=== PATIENT | male | born 1950 | race Caucasian/White ===

== ENCOUNTER 2016-09-12 15:56 | Emergency (ER) | payer BC ==
[2016-09-12 16:07] VITALS: BP 130/68; PULSE 74; TEMP 97.8; BMI 27.3
--- NOTE | 2016-09-12 17:44 | PDOC ---
History of Present Illness - General Chief Complaint: Ear Problem Stated Complaint: RT EAR CLOGGED Time Seen by Provider: 09/12/16 16:26 History Source: Patient Exam Limitations: No Limitations - History of Present Illness Initial Comments: 09/12/16 17:39 Chief complaint: Right ear clogged with wax decreased hearing History of present illness: Patient is a 66-year-old male with no significant medical history here today complaining of not being able to hear well out of his right ear often has wax impactions in his ear according to patient. Patient denies any pain. Just states "my but that's okay". Patient denies any fever , nasal congestion, sore throat, cough or any other symptoms. Patient reports last time he had his ears irrigated was 4 months ago with ear nose and throat MD. 09/12/16 17:41 Timing/Duration: getting worse (decreased hearing rt. ear ) Severity: moderate Associated Symptoms: reports: other (decreased hearing rt. ear ) Past History - Past Medical History Allergies/Adverse Reactions: Allergies Allergy/AdvReac Type Severity Reaction Status Date / Time No Known Allergies Allergy Verified 09/12/16 16:06 Home Medications: Ambulatory Orders NK [No Known Home Medication] 12/06/15 Other medical history: NONE - Psycho/Social/Smoking Cessation Hx Anxiety: No Suicidal Ideation: No Smoking Status: Yes Smoking History: Current every day smoker Have you smoked in the past 12 months: Yes Number of Cigarettes Smoked Daily: 7 Information on smoking cessation initiated: Yes 'Breaking Loose' booklet given: 09/12/16 Hx Alcohol Use: No Drug/Substance Use Hx: No Substance Use Type: None Review of Systems - Review of Systems Able to Perform ROS?: Yes Constitutional: No: Symptoms Reported HEENTM: Yes: Hearing Loss (right ear) Respiratory: No: Symptoms reported Cardiac (ROS): No: Symptoms Reported ABD/GI: No: Symptoms Reported : No: Symptoms Reported Musculoskeletal: No: Symptoms Reported Integumentary: No: Symptoms Reported Neurological: No: Symptoms reported *Physical Exam - Vital Signs Last Vital Signs Temp Pulse Resp BP Pulse Ox 97.8 F 74 18 130/68 97 09/12/16 16:03 09/12/16 16:03 09/12/16 16:03 09/12/16 16:03 09/12/16 16:03 - Physical Exam General Appearance: Yes: Appropriately Dressed HEENT: positive: TMs Normal (after irrigation b/l ), Other (b/l cerumen impaction, after irrigation of ears TM pearly dwyer, hearing WNL"S b/l ). negative: Pharyngeal Erythema, Tonsillar Exudate, Tonsillar Erythema, Nasal Congestion, Rhinorrhea Neck: negative: Lymphadenopathy (R), Lymphadenopathy (L) Respiratory/Chest: positive: Normal Breath Sounds. negative: Chest Tender, Respiratory Distress Cardiovascular: positive: Regular Rhythm, Regular Rate, S1, S2 Integumentary: positive: Normal Color Neurologic: positive: Alert, Normal Response, Responsive Medical Decision Making - Medical Decision Making 09/12/16 17:41 Patient is a 66-year-old male with no significant medical history here today complaining of not being able to hear well out of his right ear often has wax impactions in his ear according to patient. Patient denies any pain. Just states "my but that's okay". Patient denies any fever, nasal congestion, sore throat, cough or any other symptoms. Patient reports last time he had his ears irrigated was 4 months ago with ear nose and throat MD. 09/12/16 17:45 B/L cerumen impaction PLAN: b/l ear irrigation with warm water and 1/10 hydrogen peroxide with good results moderate amount of cerumen, no complications hearing restored *DC/Admit/Observation/Transfer Diagnosis at time of Disposition: Excessive cerumen in both ear canals - Discharge Dispostion Disposition: HOME Condition at time of disposition: Stable - Referrals Referrals: Rogelio Robbins [Primary Care Provider] - Macho Medina MD [Staff Physician] - - Patient Instructions Additional Instructions: Follow up ear, nose and throat Dr. Medina in the future for further evaluation and removal of wax RETURN TO EMERGENCY ROOM IF ANY PAIN IN EARS PATIENT VOICED UNDERSTANDING OF DISCHARGE INSTRUCTIONS AND ALL QUESTIONS WERE ANSWERED
== END 2016-09-12 17:51 | disposition home or self-care (01) ==
LOC: JERFT 15:56
PROC: 3E1B78Z Irrigation of Ear using Irrigating Substance, Via Natural or Artificial Opening (ICD-10-PCS; principal; 2016-09-12)
DX: H61.23 Impacted cerumen, bilateral (principal)
CPT/HCPCS: 99281-25

== ENCOUNTER 2022-05-12 19:26 | Emergency (ER) | payer BC, OTHER ==
[2022-05-12 19:32] VITALS: BP 133/73; PULSE 96; RESP 18; TEMP 97.9; BMI 31.4
[2022-05-12] MEDS ORDERED: FAMOTIDINE 20 MG/50 ML IVPB 20 MG/50 ML MG IVPB ONE ×2 (21:00→21:23)
[2022-05-12] MEDS ORDERED: SODIUM CHLORIDE 0.9% 500 ML INFUS.BAG IV ONE (21:00)
[2022-05-12] MEDS ORDERED: MAG HYDROX/AL HYDROX/SIMETH 30 ML UNIT-DOSE CUP PO ONE (21:00)
[2022-05-12] MEDS ORDERED: MAG HYDROX/AL HYDROX/SIMETH 30 ML UNIT-DOSE CUP ONE (21:22)
[2022-05-12 21:29] LABS: BASO % 1.2 % (0-2.0); EOS % 3.1 % (0-4.5); HEMATOCRIT 44.9 % (35.4-49); HEMOGLOBIN 15.6 GM/dL (11.7-16.9); LYMPH % 30.6 % (8-40); MCH 33.6 pg (25.7-33.7); MCHC 34.6 g/dl (32.0-35.9); MEAN CELL VOLUME 97.2 fl (80-96); MEAN PLT VOLUME 7.9 fl (7.5-11.1); MONO % 10.7 % (3.8-10.2); NEUT % 54.4 % (42.8-82.8); PLATELET COUNT 142 10^3/uL (134-434); RBC 4.62 M/mm3 (4.00-5.60); RDW 15.5 % (11.9-15.9); WHITE BLOOD COUNT 9.2 K/mm3 (4.0-10.0)
[2022-05-12 21:38] LABS: INR 1.35 (0.83-1.09); PROTHROMBIN TIME (PATIENT) 15.6 SEC (9.7-13.0)
[2022-05-12 21:40] LABS: ACTIVATED PTT 36.5 SECONDS (25.2-36.5)
[2022-05-12 21:51] LABS: BLOOD UREA NITROGEN 10.8 mg/dL (7-18); CALCIUM 9.1 mg/dL (8.5-10.1)
[2022-05-12 21:52] LABS: ALBUMIN 2.9 g/dl (3.4-5.0); MAGNESIUM 2.3 mg/dL (1.8-2.4)
[2022-05-12 21:54] LABS: CREATININE 0.9 mg/dL (0.55-1.3)
[2022-05-12 21:56] LABS: BILIRUBIN,TOTAL 0.9 mg/dL (0.2-1); TOT PROT 6.7 g/dl (6.4-8.2)
== END 2022-05-13 01:23 | disposition left against medical advice (07) ==
LOC: JER 19:26
PROC: 3E033GC Introduction of Other Therapeutic Substance into Peripheral Vein, Percutaneous Approach (ICD-10-PCS; principal; 2022-05-12)
DX: I48.91 Unspecified atrial fibrillation (principal); R10.13 Epigastric pain; K74.60 Unspecified cirrhosis of liver
CPT/HCPCS: 0241U-QW; 36415; 71046-TC-FY; 74178-TC; 80053; 82550; 82553; 83690; 83735; 84439; 84443; 84484; 85025; 85610; 85730; 86850; 86900; 86901; 93005; 93010; 99285-25; Q9967

== ENCOUNTER 2022-06-10 21:42 | Observation (INO) | payer OTHER ==
[2022-06-10 23:16] LABS: BASO % 0.8 % (0-2.0); EOS % 0.7 % (0-4.5); HEMATOCRIT 49.6 % (35.4-49); HEMOGLOBIN 16.9 GM/dL (11.7-16.9); LYMPH % 21.2 % (8-40); MCH 33.3 pg (25.7-33.7); MEAN CELL VOLUME 97.9 fl (80-96); MEAN PLT VOLUME 9.5 fl (7.5-11.1); MONO % 8.5 % (3.8-10.2); NEUT % 68.8 % (42.8-82.8); PLATELET COUNT 143 10^3/uL (134-434); RBC 5.07 M/mm3 (4.00-5.60); RDW 15.9 % (11.9-15.9); WHITE BLOOD COUNT 9.7 K/mm3 (4.0-10.0)
[2022-06-10 23:26] LABS: INR 1.65 (0.83-1.09)
[2022-06-10] MEDS: SODIUM CHLORIDE 1,000 ML IV SCH (23:30)
[2022-06-10 23:37] LABS: BLOOD UREA NITROGEN 18.8 mg/dL (7-18); CALCIUM 9.4 mg/dL (8.5-10.1)
[2022-06-10 23:38] LABS: ALBUMIN 3.4 g/dl (3.4-5.0)
[2022-06-10 23:42] LABS: BILIRUBIN,TOTAL 1.1 mg/dL (0.2-1); TOT PROT 7.7 g/dl (6.4-8.2)
[2022-06-11] MEDS ORDERED: APIXABAN 5 MG TABLET PO SCH (04:20)
[2022-06-11 06:39] LABS: HEMATOCRIT 46.8 % (35.4-49); MCH 33.4 pg (25.7-33.7); MCHC 34.2 g/dl (32.0-35.9); MEAN CELL VOLUME 97.7 fl (80-96); MEAN PLT VOLUME 9.4 fl (7.5-11.1); PLATELET COUNT 129 10^3/uL (134-434); RBC 4.79 M/mm3 (4.00-5.60); RDW 15.5 % (11.9-15.9)
[2022-06-11 07:09] LABS: CALCIUM 8.9 mg/dL (8.5-10.1)
[2022-06-11 07:10] LABS: BLOOD UREA NITROGEN 17.3 mg/dL (7-18); MAGNESIUM 1.8 mg/dL (1.8-2.4)
[2022-06-11 07:12] LABS: CREATININE 0.9 mg/dL (0.55-1.3); PHOSPHOROUS 3.2 mg/dL (2.5-4.9)
[2022-06-11 07:14] LABS: BILIRUBIN,TOTAL 1.6 mg/dL (0.2-1); TOT PROT 6.6 g/dl (6.4-8.2)
[2022-06-11] MEDS ORDERED: LACTULOSE 20 GM/30 ML UDC (FOR ORAL USE ONLY) PO PRN (09:46)
[2022-06-11] MEDS: ENOXAPARIN NA (PORCINE) 40 MG/0.4 ML DISP.SYRIN SQ SCH ×2 (11:07→11:22)
[2022-06-11] MEDS: RIFAXIMIN 550 MG TABLET PO SCH ×2 (11:07→21:44)
[2022-06-11] MEDS: ZINC SULFATE 220 MG CAPSULE (FP) PO SCH (11:08)
[2022-06-11] MEDS: metoPROLOL SUCCINATE 25 MG TAB.SR.24H (FP) PO SCH ×2 (11:08→11:23)
[2022-06-11] MEDS: ISOSORBIDE MONONITRATE 30 MG TAB.SR.24H (FP) PO SCH (11:08)
[2022-06-11 12:23] VITALS: BMI 31.5
[2022-06-11 12:28] LABS: HEPATITIS B SURFACE AG MATERN NON-REACTIVE (NONREACTIVE)
[2022-06-11] MEDS: SODIUM CHLORIDE 1,000 ML IV SCH (13:32)
[2022-06-11 18:31] LABS: EPI CELLS 5 /uL (0-25.1); HYALINE CASTS 1 /uL (0-3.1); PH,URINE 6.5 (5.0-8.0); URINE APPEARANCE CLEAR; URINE BACTERIA 13 /uL (0-1359); URINE BILIRUBIN 1+ (NEGATIVE); URINE COLOR DK YELLOW; URINE GLUCOSE (UA) NEGATIVE (NEGATIVE); URINE KETONE NEGATIVE (NEGATIVE); URINE LEUK ESTERASE NEGATIVE (NEGATIVE); URINE NITRITE NEGATIVE (NEGATIVE); URINE PROTEIN 1+ (NEGATIVE); URINE RBC 13 /uL (0-23.9); URINE WBC 11 /uL (0-25.8)
[2022-06-11 18:39] LABS: PHENCYCLIDINE,URINE NEGATIVE (NEGATIVE)
[2022-06-11 18:40] LABS: COCAINE, UR NEGATIVE (NEGATIVE); METHADONE, UR NEGATIVE (NEGATIVE); OPIATES, URI NEGATIVE (NEGATIVE); URINE AMPHETAMINES NEGATIVE (NEGATIVE); URINE BARBITURATES NEGATIVE (NEGATIVE); URINE BENZODIAZEPINES NEGATIVE (NEGATIVE)
[2022-06-12] MEDS: SODIUM CHLORIDE 1,000 ML IV SCH (03:51)
[2022-06-12 08:32] LABS: BASO % 1.2 % (0-2.0); EOS % 3.2 % (0-4.5); HEMATOCRIT 45.2 % (35.4-49); HEMOGLOBIN 15.6 GM/dL (11.7-16.9); LYMPH % 36.2 % (8-40); MCH 33.5 pg (25.7-33.7); MCHC 34.5 g/dl (32.0-35.9); MEAN CELL VOLUME 97.3 fl (80-96); NEUT % 49.4 % (42.8-82.8); PLATELET COUNT 127 10^3/uL (134-434); RBC 4.64 M/mm3 (4.00-5.60); RDW 15.3 % (11.9-15.9); WHITE BLOOD COUNT 7.6 K/mm3 (4.0-10.0)
[2022-06-12 08:51] LABS: ALBUMIN 2.8 g/dl (3.4-5.0); BLOOD UREA NITROGEN 21.1 mg/dL (7-18); CALCIUM 8.6 mg/dL (8.5-10.1)
[2022-06-12 08:54] LABS: BILIRUBIN,DIRECT 0.4 mg/dL (0.0-0.2); CREATININE 0.9 mg/dL (0.55-1.3); PHOSPHOROUS 3.1 mg/dL (2.5-4.9)
[2022-06-12 08:56] LABS: BILIRUBIN,TOTAL 1.2 mg/dL (0.2-1); TOT PROT 6.4 g/dl (6.4-8.2)
[2022-06-12] MEDS: ZINC SULFATE 220 MG CAPSULE (FP) PO SCH (10:37)
[2022-06-12] MEDS: RIFAXIMIN 550 MG TABLET PO SCH (10:37)
[2022-06-12] MEDS: metoPROLOL SUCCINATE 25 MG TAB.SR.24H (FP) PO SCH (10:37)
[2022-06-12] MEDS: ISOSORBIDE MONONITRATE 30 MG TAB.SR.24H (FP) PO SCH (10:37)
[2022-06-12] MEDS: ENOXAPARIN NA (PORCINE) 40 MG/0.4 ML DISP.SYRIN SQ SCH ×2 (10:37→10:47)
[2022-06-12 14:23] VITALS: BP 123/72; PULSE 99; RESP 18; TEMP 98.1
[2022-06-13 18:36] LABS: HOMOCYSTINE-PLASMA OR SERUM 13.7 umol/L (0.0-17.2)
== END 2022-06-12 16:11 | disposition home or self-care (01) ==
LOC: JER 21:42 → JERBED 06-11 00:37 → J5S 06-11 09:59
PROVIDERS: ADMIT Internal Medicine; ATTEND Internal Medicine
DX: R41.82 Altered mental status, unspecified (principal); I48.91 Unspecified atrial fibrillation; Z79.01 Long term (current) use of anticoagulants; F17.210 Nicotine dependence, cigarettes, uncomplicated; K74.60 Unspecified cirrhosis of liver
CPT/HCPCS: 0241U-QW; 36415; 70450-TC; 71045-TC-FY; 80048; 80053; 80061; 80076; 80307; 81003; 82140; 82550; 82553; 82607; 82746; 82962; 83036; 83090; 83735; 84100; 84443; 84484; 85025; 85027; 85610; 85730; 86705; 86803; 86850; 86900; 86901; 87086; 87340; 87517; 87522; 93005; 93010; 93306-TC; 93880-TC; 99285-25; G0378

== ENCOUNTER 2022-08-02 09:46 | Inpatient (IN) | payer OTHER ==
[2022-08-02 10:44] LABS: EOS % 2.2 % (0-4.5); HEMATOCRIT 43.9 % (35.4-49); HEMOGLOBIN 15.8 GM/dL (11.7-16.9); LYMPH % 29.5 % (8-40); MCH 34.8 pg (25.7-33.7); MCHC 35.9 g/dl (32.0-35.9); MEAN CELL VOLUME 96.9 fl (80-96); MEAN PLT VOLUME 8.7 fl (7.5-11.1); MONO % 8.8 % (3.8-10.2); NEUT % 58.5 % (42.8-82.8); PLATELET COUNT 137 10^3/uL (134-434); RBC 4.53 M/mm3 (4.00-5.60); RDW 15.9 % (11.9-15.9); WHITE BLOOD COUNT 8.4 K/mm3 (4.0-10.0)
[2022-08-02 11:02] LABS: POTASSIUM 4.6 mmol/L (3.5-5.1)
[2022-08-02 11:05] LABS: ALBUMIN 2.9 g/dl (3.4-5.0); BLOOD UREA NITROGEN 14.8 mg/dL (7-18)
[2022-08-02 11:08] LABS: CREATININE 0.9 mg/dL (0.55-1.3)
[2022-08-02 11:09] LABS: BILIRUBIN,TOTAL 0.7 mg/dL (0.2-1)
[2022-08-02] MEDS ORDERED: LACTATED RINGERS SOLUTION 1000 ML INFUS.BAG IV ONE (11:22)
[2022-08-02] MEDS ORDERED: LACTULOSE 20 GM/30 ML UDC (FOR ORAL USE ONLY) PO ONE (12:06)
[2022-08-02] MEDS ORDERED: LACTULOSE 20 GM/30 ML UDC (FOR ORAL USE ONLY) ONE (12:16)
[2022-08-02] MEDS ORDERED: LACTATED RINGERS SOLUTION 1,000 ML IV SCH (12:45)
[2022-08-02] MEDS ORDERED: metoPROLOL SUCCINATE 25 MG TAB.SR.24H (FP) PO SCH (13:00)
[2022-08-02] MEDS ORDERED: metoPROLOL SUCCINATE 25 MG TAB.SR.24H (FP) PO ONE (13:11)
[2022-08-02 15:24] VITALS: BMI 32.3
[2022-08-02] MEDS: CARVEDILOL 6.25 MG TABLET (FP) PO SCH (21:30)
[2022-08-02] MEDS: LACTULOSE 20 GM/30 ML UDC (FOR ORAL USE ONLY) PO SCH (21:30)
[2022-08-02] MEDS: RIFAXIMIN 550 MG TABLET PO SCH (21:30)
[2022-08-02] MEDS ORDERED: APIXABAN 5 MG TABLET PO SCH (22:00)
[2022-08-02] MEDS ORDERED: CARVEDILOL 12.5 MG TABLET (FP) PO SCH (22:00)
[2022-08-03 08:17] LABS: BASO % 0.9 % (0-2.0); EOS % 3.1 % (0-4.5); HEMATOCRIT 42.6 % (35.4-49); HEMOGLOBIN 15.1 GM/dL (11.7-16.9); LYMPH % 32.3 % (8-40); MCH 34.3 pg (25.7-33.7); MCHC 35.6 g/dl (32.0-35.9); MEAN CELL VOLUME 96.4 fl (80-96); MEAN PLT VOLUME 10.1 fl (7.5-11.1); MONO % 10.3 % (3.8-10.2); NEUT % 53.4 % (42.8-82.8); PLATELET COUNT 126 10^3/uL (134-434); RBC 4.42 M/mm3 (4.00-5.60); RDW 15.7 % (11.9-15.9); WHITE BLOOD COUNT 8.4 K/mm3 (4.0-10.0)
[2022-08-03 08:19] LABS: INR 1.44 (0.83-1.09); PROTHROMBIN TIME (PATIENT) 16.7 SEC (9.7-13.0)
[2022-08-03 08:22] LABS: ACTIVATED PTT 34.9 SECONDS (25.2-36.5)
[2022-08-03 08:29] LABS: POTASSIUM 3.9 mmol/L (3.5-5.1)
[2022-08-03 08:34] LABS: ALBUMIN 2.6 g/dl (3.4-5.0); CALCIUM 8.7 mg/dL (8.5-10.1)
[2022-08-03 08:35] LABS: BLOOD UREA NITROGEN 12.2 mg/dL (7-18); MAGNESIUM 1.7 mg/dL (1.8-2.4)
[2022-08-03 08:37] LABS: CREATININE 0.9 mg/dL (0.55-1.3)
[2022-08-03 08:39] LABS: BILIRUBIN,TOTAL 1.5 mg/dL (0.2-1); TOT PROT 6.3 g/dl (6.4-8.2)
[2022-08-03] MEDS: FOLIC ACID 1 MG TABLET (FP) PO SCH (09:27)
[2022-08-03] MEDS: LACTULOSE 20 GM/30 ML UDC (FOR ORAL USE ONLY) PO SCH ×2 (09:27→22:02)
[2022-08-03] MEDS: RIFAXIMIN 550 MG TABLET PO SCH ×2 (09:27→22:02)
[2022-08-03] MEDS: CARVEDILOL 6.25 MG TABLET (FP) PO SCH ×2 (09:27→22:02)
[2022-08-03] MEDS: THIAMINE HCL 100 MG TABLET (FP) PO SCH (09:27)
[2022-08-03] MEDS ORDERED: ENOXAPARIN NA (PORCINE) 40 MG/0.4 ML DISP.SYRIN SQ SCH (10:00)
[2022-08-04 10:22] VITALS: RESP 18; TEMP 98
[2022-08-04] MEDS: LACTULOSE 20 GM/30 ML UDC (FOR ORAL USE ONLY) PO SCH (11:28)
[2022-08-04] MEDS: THIAMINE HCL 100 MG TABLET (FP) PO SCH (11:28)
[2022-08-04] MEDS: CARVEDILOL 6.25 MG TABLET (FP) PO SCH (11:29)
[2022-08-04] MEDS: FOLIC ACID 1 MG TABLET (FP) PO SCH (11:29)
[2022-08-04] MEDS: RIFAXIMIN 550 MG TABLET PO SCH (11:29)
[2022-08-04 12:33] LABS: POTASSIUM 4.2 mmol/L (3.5-5.1)
[2022-08-04 12:34] LABS: BLOOD UREA NITROGEN 14.9 mg/dL (7-18)
[2022-08-04 12:37] LABS: CALCIUM 9.2 mg/dL (8.5-10.1)
[2022-08-04 12:41] LABS: CREATININE 0.9 mg/dL (0.55-1.3)
[2022-08-04 12:45] LABS: BASO % 0.8 % (0-2.0); EOS % 2.6 % (0-4.5); HEMATOCRIT 47.8 % (35.4-49); HEMOGLOBIN 16.3 GM/dL (11.7-16.9); LYMPH % 33.2 % (8-40); MCH 33.2 pg (25.7-33.7); MCHC 34.2 g/dl (32.0-35.9); MEAN CELL VOLUME 97.2 fl (80-96); MEAN PLT VOLUME 9.9 fl (7.5-11.1); NEUT % 55.4 % (42.8-82.8); PLATELET COUNT 152 10^3/uL (134-434); RBC 4.92 M/mm3 (4.00-5.60); RDW 15.9 % (11.9-15.9); WHITE BLOOD COUNT 8.7 K/mm3 (4.0-10.0)
[2022-08-04 14:07] VITALS: BP 102/63; PULSE 84
[2022-08-05] MEDS ORDERED: PANTOPRAZOLE 40 MG TABLET PO SCH (10:00)
== END 2022-08-04 15:26 | disposition left against medical advice (07) | DRG 442 ==
LOC: JER 09:46 → JERBED 12:12 → J5S 14:54
PROVIDERS: ADMIT Internal Medicine; ATTEND Internal Medicine
DX: K72.90 Hepatic failure, unspecified without coma (principal); E72.20 Disorder of urea cycle metabolism, unspecified; I85.10 Secondary esophageal varices without bleeding; K76.6 Portal hypertension; K74.60 Unspecified cirrhosis of liver; I10 Essential (primary) hypertension; I48.91 Unspecified atrial fibrillation; R74.01 Elevation of levels of liver transaminase levels; K75.81 Nonalcoholic steatohepatitis (NASH); F17.210 Nicotine dependence, cigarettes, uncomplicated; R25.1 Tremor, unspecified; Z91.148 Patient's other noncompliance with medication regimen for other reason
CPT/HCPCS: 36415; 70450-TC; 71045-TC-FY; 76705-TC; 80048; 80053; 82140; 83735; 84100; 84484; 85025; 85610; 85730; 93005; 93010; 97116-GP; 97161-GP; 99285-25; C9803-CS; U0003; U0005